=== PATIENT | male | born 1950 | race Caucasian/White ===

== ENCOUNTER → 2019-03-08 | Outpatient (CLI) | payer MEDICARE, OTHER ==
[~2019-03-08] VITALS: Ht 182 cm; Wt 129.5 kg
[~2019-03-08] MED LIST: ASPI-586 PO; CHOL2000 PO; CLOP75TA69 PO; DULO60CA6 PO; FENO134C PO; GABA-488 PO; LOSA25TA41 PO; NAPR220C11 PO; OMEP40CA36 PO
== END | disposition home or self-care (01) ==
LOC: PREOP 08:44
PROVIDERS: ATTEND Surgery
DX: Z01.818 Encounter for other preprocedural examination (principal)

== ENCOUNTER 2019-03-15 08:40 | Inpatient (IN) | payer MEDICARE, OTHER ==
[2019-03-15] VITALS (15 sets, daily range): BP systolic 140–204; BP diastolic 72–99
[~2019-03-15] VITALS: Ht 182 cm; Wt 129.5 kg
[2019-03-15] MEDS ORDERED: NS IV 1000 ML 1,000 ML IV SCH (09:14)
[2019-03-15] MEDS ORDERED: NALOXONE 0.4 MG/ML 1 ML (NARCAN) VIAL IV PRN (09:15)
[2019-03-15] MEDS ORDERED: metroNIDAZOLE 500MG/100ML IVPB 100 ML IV SCH (09:15)
[2019-03-15] MEDS ORDERED: diphenhydrAMINE 50 MG/ML INJ (BENADRYL) IV PRN (09:15)
[2019-03-15] MEDS ORDERED: oxyCODONE 5 MG/5 ML ORAL SOLN (roxiCODONE) 5 ML UDC PO PRN (09:15)
[2019-03-15] MEDS ORDERED: ONDANSETRON 4 MG/2 ML (SDV) Z0FRAN IV PRN (09:15)
[2019-03-15] MEDS ORDERED: METOCLOPRAMIDE INJ 10 MG/2 ML (REGLAN) IV PRN (09:15)
[2019-03-15] MEDS ORDERED: diphenhydrAMINE 50 MG/ML INJ (BENADRYL) IVP PRN (09:15)
[2019-03-15] MEDS ORDERED: morphine PCA 100 MG/100 ML BAG IV PRN (09:15)
[2019-03-15] MEDS ORDERED: RT-ALBUTEROL SULF 2.5 MG/3 ML PRE-MIX VIAL INH SCH (09:15)
[2019-03-15] MEDS ORDERED: HYDR-34 PO (09:21)
[2019-03-15] MEDS ORDERED: PANT40TA2 PO (09:21)
[2019-03-15] MEDS ORDERED: ONDN4T PO (09:21)
--- NOTE | 2019-03-15 09:22 | Discharge Inst-Surgical ---
D/C Lap Instructions-LIO New, Converted, or Re-Newed RX: RX on Chart Follow Up Appt in 2 weeks Activity as tolerated No driving for 24 hours No driving while on pain medications Incentive Spirometry use every 2 hours while awake clear liquid diet next 2 weeks. Symptoms to Report: Fever over 101 degree F, Nausea/Vomiting Infection Signs and Symptoms to report: Increased redness, Foul odor of wound, Increased drainage Bathing instructions: May shower Operative Area Clean/Dry; Keep incision clean/dry If any problems/questions: Contact your physician or go to Emergency Room JOE VACA MD Mar 15, 2019 09:22
--- NOTE | 2019-03-15 09:23 | Progress Note-Pre Operative ---
Pre-Operative Progress Note H&P Reviewed The H&P was reviewed, patient examined and no changes noted. Date Seen by Provider: Mar 15, 2019 Time Seen by Provider: 09:15 Date H&P Reviewed: Mar 15, 2019 Time H&P Reviewed: 09:15 Pre-Operative Diagnosis: morbid obesity, HTN, GERD JOE VACA MD Mar 15, 2019 09:23
[2019-03-15] MEDS ORDERED: ceFAZolin 2 GM/50 ML NS 50 ML ONE (09:29)
[2019-03-15 09:32] LABS: BASOPHILS % (AUTO) 1 % (0-10); EOSINOPHILS # (AUTO) 0.2 10^3/uL (0.0-0.3); EOSINOPHILS % (AUTO) 3 % (0-10); HEMATOCRIT 42 % (40-54); HEMOGLOBIN 14.1 G/DL (13.3-17.7); LYMPHOCYTES # (AUTO) 1.1 X 10^3 (1.0-4.0); LYMPHOCYTES % (AUTO) 22 % (12-44); MEAN CORPUSCULAR HEMOGLOBIN 29 PG (25-34); MEAN CORPUSCULAR HGB CONC 34 G/DL (32-36); MEAN CORPUSCULAR VOLUME 86 FL (80-99); MEAN PLATELET VOLUME 10.7 FL (7.4-10.4); MONOCYTES # (AUTO) 0.6 X 10^3 (0.0-1.0); MONOCYTES % (AUTO) 12 % (0-12); NEUTROPHILS # (AUTO) 2.9 X 10^3 (1.8-7.8); NEUTROPHILS % (AUTO) 62 % (42-75); PLATELET COUNT 279 10^3/uL (130-400); RED CELL DISTRIBUTION WIDTH 14.6 % (10.0-14.5); WHITE BLOOD COUNT 4.8 10^3/uL (4.3-11.0)
[2019-03-15] MEDS ORDERED: ceFAZolin 2 GM/50 ML NS 50 ML IV ONE (09:45)
[2019-03-15] MEDS: LACTATED RINGERS 1,000 ML IV PRN ×3 (10:13→13:44)
[2019-03-15] MEDS ORDERED: fentaNYL INJECTION 100 MCG/2 ML AMP ONE ×2 (11:08→13:02)
[2019-03-15] MEDS ORDERED: MIDAZOLAM 2 MG/2 ML (VERSED) VIAL ONE (11:08)
[2019-03-15] MEDS ORDERED: BUP/EPI 0.25% 1:200,000 (MARCAINE) 10 ML VIAL IJ ONE (11:15)
[2019-03-15] MEDS ORDERED: FAMOTIDINE 20MG/2ML IV (PEPCID) ONE (11:17)
[2019-03-15] MEDS ORDERED: FAMOTIDINE 20MG/2ML IV (PEPCID) IV ONE (11:30)
[2019-03-15] MEDS ORDERED: DEXAMETHASONE 10 MG/ML (DECADRON) 1 ML VIAL ONE (12:12)
[2019-03-15] MEDS ORDERED: SEVOFLURANE (ULTANE) 15 ML INHAL SOLN ONE ×4 (12:12→12:16)
[2019-03-15] MEDS ORDERED: SUCCINYLCHOLINE INJ 100 MG/5 ML SYR ONE (12:12)
[2019-03-15] MEDS ORDERED: ONDANSETRON 4 MG/2 ML (SDV) Z0FRAN ONE (12:12)
[2019-03-15] MEDS ORDERED: ROCURONIUM 10 MG/ML 5 ML SYRINGE IV ONE (12:12)
[2019-03-15] MEDS ORDERED: LACTATED RINGERS 1,000 ML IV ONE (12:16)
[2019-03-15] MEDS ORDERED: GLYCOPYRROLATE 0.2 MG/ML (ROBINUL) 2 ML VIAL ONE (12:16)
[2019-03-15] MEDS ORDERED: NEOSTIGMINE 3 MG/3 ML VIAL ONE (12:16)
--- NOTE | 2019-03-15 12:57 | Progress Note-Post Operative ---
Post-Operative Progess Note Surgeon (s)/Boning Room Worker (s) Surgeon JOE VACA MD Boning Room Worker: mario aponte INFORMATICS EDUCATOR Pre-Operative Diagnosis morbid obesity, HTN, GERD Post-Operative Diagnosis same Procedure & Operative Findings Date of Procedure 03/15/19 Procedure Performed/Findings laparoscopic gastric sleeve resection. Anesthesia Type get Estimated Blood Loss Estimated blood loss (mL): minimal Specimens/Packing Specimens Removed stomach JOE VACA MD Mar 15, 2019 12:57
[2019-03-15] MEDS ORDERED: ONDANSETRON 4 MG/2 ML (SDV) Z0FRAN IVP PRN (13:30)
[2019-03-15] MEDS ORDERED: morphine INJ 10 MG/ML 1ML (SYR OR VIAL) IVP ONE (13:30)
[2019-03-15] MEDS ORDERED: LABETALOL HCL 20 MG/4 ML VIAL ONE (13:53)
--- NOTE | 2019-03-15 13:55 | Anesthesia-General Post-Op ---
General Patient Condition Mental Status/LOC: Same as Preop Cardiovascular: Unsatisfactory Nausea/Vomiting: Absent Respiratory: Satisfactory Pain: Controlled Complications: Absent Post Op Complications Complications None Follow Up Care/Instructions Patient Instructions None needed. Anesthesia/Patient Condition Patient Condition Patient is doing well, no complaints,, no apparent adverse anesthesia problems. HPTN in pacu. Labetalol IV. No complications reported per nursing. SABAS GAN CRNA Mar 15, 2019 13:54
[2019-03-15] MEDS ORDERED: LABETALOL HCL 100 MG/20 ML VIAL IV PRN ×2 (14:00)
--- NOTE | 2019-03-15 14:30 | NUR ---
BRANDY CALIXTO admitted to room 420-1, with an admitting diagnosis of LAP SLEEVE POST-OP , on 03/15/19 from [facility] via [facility], accompanied by STAFF.BRANDY CALIXTO introduced to surroundings, call light, bed controls, phone, TV, temperature control, lights, meal times, smoking policy, visitor policy, side rail policy, bathrooms and showers. Patient Rights given to patient in the handbook.BRANDY CALIXTO verbalizes understanding that [facility] is not responsible for the loss or damage to any personal effects or valuables that are kept in the patients posession during their hospitalization. The following Patient Care Plans were discussed with the PT: Discharge Planning, PAIN CONTROL,IV THERAPY, and TESTS AND PROCEDURES. BRANDY CALIXTO verbalizes understanding of Interdisciplinary Patient Education. Patient and/or family were informed about the Rapid Response Team and its purpose.
--- NOTE | 2019-03-15 14:30 | NUR ---
PT. FROM [facility] . ALERT AT TIMES. KEEPS EYES CLOSED. MOANING FREQ. C/O OF MIDDLE CHEST PAIN. SKIN W/D. DEEP BREATHING ENCOURAGED. O2 ON AT 2 L PER MIN. PER N/C. X 5 DERMABOND SITES TO ABD. WITH SL. BRUISING NOTED. HOB UP. IV PER RIGHT AC IN PLACE. REFUSES ICE CHIPS AT THIS TIME. KRUSE CATH WITH CLEAR YELLOW URINE. ICE TO ABD. SCD'S TO LOWER LEGS CESAR.
[2019-03-15] MEDS ORDERED: morphine PCA 100 MG/100 ML BAG IV ONE (14:55)
[2019-03-15] MEDS: metroNIDAZOLE 500MG/100ML IVPB 100 ML IV SCH (15:18)
[2019-03-15] MEDS: ONDANSETRON 4 MG/2 ML (SDV) Z0FRAN IVP SCH ×2 (15:19→16:04)
[2019-03-15] MEDS: METOCLOPRAMIDE INJ 10 MG/2 ML (REGLAN) IVP SCH ×2 (15:25→16:04)
[2019-03-15] MEDS: 1/2 NS W/KCL 20 MEQ/L 1,000 ML IV SCH ×2 (15:25→16:04)
--- NOTE | 2019-03-15 15:47 | OPERATIVE REPORT ---
DATE OF SERVICE: 03/15/2019 ATTENDING PRIMARY CARE PHYSICIAN: Dr. Wyatt, roll cleaner in [place], [place]. PREOPERATIVE DIAGNOSES: Rheumatoid arthritis, hypertension, gastroesophageal reflux disease and morbid obesity. POSTOPERATIVE DIAGNOSES: Rheumatoid arthritis, hypertension, gastroesophageal reflux disease and morbid obesity. PROCEDURE: Laparoscopic gastric sleeve resection. SURGEON: Joe Vaca MD BIOSTATISTICS DIRECTOR: Vlad Hillman APRN ANESTHESIA: General endotracheal. ESTIMATED BLOOD LOSS: Minimal. FINDINGS: No hiatal hernia identified. Normal appearing gallbladder. DISPOSITION: The patient tolerated the procedure well. INDICATIONS: The patient is a 68-year-old male who is in our surgical weight loss program for the laparoscopic gastric sleeve resection does meets the medical criteria for bariatric surgery. He began to gain the majority of his adult weight 5 years ago after having back surgery. He has tried diet attempts including [place], Weight Watchers, low calorie, and low carbohydrate diets with no success. He has tried exercise regimens; however, he has been limited due to rheumatoid arthritis. His medical comorbidities related to his obesity include rheumatoid arthritis, hypercholesterolemia, hypertension and gastroesophageal reflux disease. DESCRIPTION OF PROCEDURE: The patient was brought to the operating room, laid supine on the table. After adequate IV pain and sedative medications and general endotracheal intubation, the abdomen was prepped and draped in standard surgical fashion. A 0.5% Marcaine with epinephrine was used to anesthetize the overlying skin in the left upper abdominal quadrant. A small transverse skin incision was made using a 15 blade. An 0 silk suture was applied to the medial aspect incision for traction and a Veress needle inserted with a low opening pressure of 0 mmHg. The abdomen was then insufflated to 15 mmHg pressure. The Veress needle removed and a 5 mm XL trocar placed followed by a 5 mm 45-degree angle laparoscope visualizing the peritoneal cavity. A 4-quadrant abdominal exploration was performed. There was mild hepatomegaly. The gallbladder, stomach, omentum appeared normal. There was no hiatal hernia identified. Under direct visualization, we then proceeded to place a midabdominal left midline 10 mm port after the skin and peritoneal lining were anesthetized using 0.5% Marcaine with epinephrine and a transverse skin incision made using a 15 blade. In a similar manner, a midabdominal right of midline 15 mm port was placed followed by a 5 mm right upper abdominal quadrant port. The epigastric region was then anesthetized and a transverse skin incision was made using 11 blade. A tract was then created through the abdominal wall layers using a trocar to a 5 mm port and through this opening, a medium sized Nathansen liver retractor was placed and the left lobe of the liver retracted anteriorly and superiorly. The patient was then placed in steep reverse Trendelenburg position. We then measured 6 cm from the pylorus along the greater curvature and marked this with a marking pen. The gastrocolic ligament next to the stomach was then opened using a Sonicision entering the lesser sac. We first proceeded with inferior dissection until we were probably approximately 2 cm below our marking. We then proceeded cephalad taking the short gastric vessels. We then proceeded to dissect the angle of His connective tissue fibers and dissected the posterior stomach behind this region. Good hemostasis was observed. A 42-Polish bougie was then placed into the stomach and directly into the pylorus under direct visualization. Using this bougie as a guide, we then proceeded with a gastric sleeve resection starting 2 cm below our marking using a 45 mm polyglycolic acid black load. We then proceeded with two 60 mm black loads followed by two 60 mm purple loads completing our gastric sleeve resection leaving 2 cm near the gastroesophageal junction. Good hemostasis was observed. The staple line corners were then clipped with 5 mm clips. Fibrin glue was then placed onto the staple line and the omentum placed onto the staple line and the bougie removed. The liver retractor was then removed. The stomach was removed through the 15 mm port site. The 10 and 15 mm port site fascia and peritoneum were then closed under direct visualization using a Brandon-Kristen device and 0 Vicryl suture. The abdomen was desufflated and remaining ports removed. All skin incisions were closed using 4-0 Monocryl running subcuticular sutures. Wounds were then cleaned and covered with Dermabond. The patient tolerated the procedure well. We will proceed with pain control with a REMOTE OPERATIONS PRODUCER as well as DVT prophylaxis with calf SCDs, early ambulation as well as Lovenox injections. Tomorrow morning, we will start a phase I clear liquid diet. Once he is tolerating at least 60 mL every 30 minutes, has adequate pain control with oral pain medications, ambulating well, we will discharge him home. He will be instructed to follow a phase I clear liquid diet for the next 2 weeks. Job ID: [id number] DocumentID: [id number] Dictated Date: 03/15/2019 13:04:29 Glazing Machine Operator Date: 03/15/2019 15:47:03 Dictated By: JOE VACA MD
[2019-03-15] MEDS ORDERED: fentaNYL INJECTION 5,000 MCG in EMPTY IV BAG (PVC) 1 EA IV SCH (17:00)
[2019-03-15] MEDS ORDERED: fentaNYL PCA 1,000 MCG/NS 80 ML (TOTAL VOLUME 100 ML) INJ SCH ×2 (17:00)
[2019-03-15] MEDS: ENALAPRILAT 2.5 MG/2 ML (VASOTEC) VIAL IV SCH (18:16)
[2019-03-15] MEDS ORDERED: ceFAZolin 2 GM IV Premixed 50 ML IV SCH (19:00)
--- NOTE | 2019-03-15 21:36 | NUR ---
PT B/P 190/93. DR. VACA CALLED. ORDERED LOPRESSOR 5MG Q6.
[2019-03-15] MEDS ORDERED: meTOprolol 5 MG/5 ML (LOPRESSOR) VIAL IV SCH (21:45)
[2019-03-15] MEDS: ENOXAPARIN 40 MG/0.4 ML (LOVENOX) SYR SC SCH (21:51)
[2019-03-15] MEDS: RT-ALBUTEROL SULF 2.5 MG/3 ML PRE-MIX VIAL INH SCH (23:18)
[2019-03-16] MEDS: metroNIDAZOLE 500MG/100ML IVPB 100 ML IV SCH ×2 (00:02→06:28)
[2019-03-16] MEDS: METOCLOPRAMIDE INJ 10 MG/2 ML (REGLAN) IVP SCH ×3 (00:02→11:14)
[2019-03-16] MEDS: ONDANSETRON 4 MG/2 ML (SDV) Z0FRAN IVP SCH ×2 (00:02→06:29)
[2019-03-16 00:07] VITALS: BP 178/90
[2019-03-16] MEDS: ENALAPRILAT 2.5 MG/2 ML (VASOTEC) VIAL IV SCH (00:32)
[2019-03-16] MEDS: 1/2 NS W/KCL 20 MEQ/L 1,000 ML IV SCH ×3 (01:43→13:30)
[2019-03-16] MEDS: ceFAZolin 2 GM IV Premixed 50 ML IV SCH ×2 (01:45→09:02)
[2019-03-16] MEDS: RT-ALBUTEROL SULF 2.5 MG/3 ML PRE-MIX VIAL INH SCH ×3 (02:51→10:59)
[2019-03-16 04:34] VITALS: BP 168/84
[2019-03-16] MEDS: meTOprolol 5 MG/5 ML (LOPRESSOR) VIAL IV SCH ×2 (05:20→11:19)
[2019-03-16 05:46] LABS: HEMOGLOBIN 12.8 G/DL (13.3-17.7); MEAN PLATELET VOLUME 10.7 FL (7.4-10.4); RED CELL DISTRIBUTION WIDTH 14.5 % (10.0-14.5); WHITE BLOOD COUNT 10.5 10^3/uL (4.3-11.0)
[2019-03-16 06:06] LABS: BUN/CREATININE RATIO 15; CALCIUM 8.3 MG/DL (8.5-10.1); CARBON DIOXIDE 21 MMOL/L (21-32); CHLORIDE 105 MMOL/L (98-107); CREATININE SERUM 0.93 MG/DL (0.60-1.30); GFR ESTIMATED > 60; GLUCOSE 123 MG/DL (70-105); POTASSIUM 4.4 MMOL/L (3.6-5.0); SODIUM 136 MMOL/L (135-145)
[2019-03-16 08:00] VITALS: BP 173/78
[2019-03-16] MEDS ORDERED: ENALAPRILAT 2.5 MG/2 ML (VASOTEC) VIAL IV SCH (08:00)
[2019-03-16] MEDS: ENOXAPARIN 40 MG/0.4 ML (LOVENOX) SYR SC SCH (08:29)
[2019-03-16] MEDS ORDERED: PANTOPRAZOLE 40 MG (PROTONIX) VIAL IV SCH (09:00)
[2019-03-16] MEDS ORDERED: SENNA W/DOCUSATE (SENOKOT S) TABLET PO SCH (09:00)
[2019-03-16] MEDS ORDERED: ONDANSETRON 4 MG/2 ML (SDV) Z0FRAN IVP PRN (09:15)
[2019-03-16] MEDS ORDERED: METOCLOPRAMIDE INJ 10 MG/2 ML (REGLAN) IVP PRN (09:15)
--- NOTE | 2019-03-16 09:22 | NUR ---
AFTER TALKING TO AND CLARIFYING ENALAPRIL DOSE AND MEDICATION AVAILABLE TO PULL FROM [facility]. THE CORRECT AMOUNT OF 5 MG WAS GIVEN. MEDICATION DID NOT SCAN. ANCEF -WHEN SCANNED SHOWED THAT IT WAS A DISCONTINUED MED INSTEAD OF THE THE ACTIVE ORDERED DOSE
[2019-03-16] MEDS ORDERED: hydrALAZINE (APESOLINE) 20 MG/ML VIAL IV PRN (09:30)
[2019-03-16 11:22] VITALS: BP 141/65
[2019-03-16] MEDS ORDERED: LOSARTAN 50 MG (COZAAR) TAB PO NR (11:46)
--- NOTE | 2019-03-16 12:39 | Consultation - Hospitalist ---
HPI History of Present Illness: HPI/Chief Complaint Oh Boyle is a 68yoF who presented for sleeve gastrectomy. The hospitalist service has been consulted for hypertension. He underwent the laparoscopic procedure yesterday. He reports having some chest pain overnight which has since resolved. He denies any shortness of breath. He denies fevers and chills. He denies any other pain complaints. He denies abdominal pain, nausea, vomiting, diarrhea, constipation, dysuria. He only takes Losartan at home for blood pressure. Source: patient, family Exam Limitations: no limitations Date Seen 03/16/19 Attending Physician David Rowley MD PCP No,Local Physician Referring Physician Date of Admission Mar 15, 2019 at 08:40 Home Medications & Allergies Home Medications Reviewed patient Home Medication Reconciliation performed by pharmacy medication reconciliations communication electronic technician and/or nursing. Patients Allergies have been reviewed. Allergies Allergies Coded Allergies No Known Drug Allergies (Unverified03/08/19) Past Mjznstl-Pjntmg-Nkuxcb Hx Past Med/Social Hx: Reviewed Nursing Past Med/Soc Hx Patient Social History Alcohol Use: Denies Use Recreational Drug Use: No Smoking Status: Never a Smoker Physical Abuse Screen: No Sexual Abuse: No Recent Foreign Travel: No Contact w/other who traveled: No Recent Hopitalizations: No Recent Infectious Disease Expo: No Immunizations Up To Date Date of Influenza Vaccine: Feb 26, 2019 Seasonal Allergies Seasonal Allergies: No Past Medical History Sexually Transmitted Disease: No HIV/AIDS: No Gastrointestinal: Gastroesophageal Reflux Musculoskeletal: Chronic Back Pain Loss of Vision: Denies Hearing Impairment: Denies Psychosocial: Depression History of Blood Disorders: No Review of Systems Constitutional: no symptoms reported, see HPI EENTM: no symptoms reported Respiratory: no symptoms reported Cardiovascular: no symptoms reported Gastrointestinal: no symptoms reported Genitourinary: no symptoms reported Musculoskeletal: no symptoms reported Skin: no symptoms reported Psychiatric/Neurological: No Symptoms Reported Physical Exam Physical Exam Vital Signs Vital Signs - First Documented 03/15/19 09:05 Temp 36.3 Pulse 105 Resp 18 B/P (MAP) 140/72 Pulse Ox 99 O2 Delivery Room Air Capillary Refill : Height, Weight, BMI Height: '" Weight: lbs. oz. kg; 39.09 BMI Method: General Appearance: No Apparent Distress, WD/WN, Obese HEENT: PERRL/EOMI, Pharynx Normal Neck: Normal Inspection, Supple Respiratory: Lungs Clear, Normal Breath Sounds, No Respiratory Distress Cardiovascular: Regular Rate, Rhythm, No Edema, No Murmur Gastrointestinal: Normal Bowel Sounds, Non Tender, Soft Extremity: Normal Inspection, Non Tender, No Pedal Edema Neurologic/Psychiatric: Alert, Oriented x3 Skin: Normal Color, Warm/Dry Lymphatic: No Adenopathy Results Results/Procedures Labs Laboratory Tests 03/15/19 09:10 03/16/19 05:10 Patient resulted labs reviewed. Assessment/Plan Assessment and Plan Assess & Plan/Chief Complaint Hypertension -BP improved this morning 141/65 -Discontinue IV Enalaprilit and Metoprolol -Begin Losartan 50 mg daily -Add IV Hydralazine 10 mg every 4 hours as needed s/p sleeve gastrectomy Obesity -Pain management and disposition per surgical team Clinical Quality Measures DVT/VTE Risk/Contraindication: Risk Factor Score Per Nursin RFS Level Per Nursing on Admit: 4+=Very High EULA NAVARRO MD Mar 16, 2019 12:39
--- NOTE | 2019-03-16 14:45 | NUR ---
79 MLS FENTANYL HEART COORDINATOR WASTED. WITNESSED BY DARLENE TELLEZ
[2019-03-16 14:58] VITALS: BP 141/65
[2019-03-17] MEDS ORDERED: LOSARTAN 50 MG (COZAAR) TAB PO SCH (09:00)
== END 2019-03-16 14:58 | disposition home or self-care (01) | DRG 621 ==
LOC: 4TH 08:40 → SURG 08:43 → EDSTATUS 10:15 → 4TH 14:05
PROVIDERS: ADMIT Surgery; ATTEND Surgery
PROC: 0DB64Z3 Excision of Stomach, Percutaneous Endoscopic Approach, Vertical (ICD-10-PCS; principal; 2019-03-15 11:39)
DX: E66.01 Morbid (severe) obesity due to excess calories (principal); M06.9 Rheumatoid arthritis, unspecified; I10 Essential (primary) hypertension; K21.9 Gastro-esophageal reflux disease without esophagitis; G89.29 Other chronic pain; M54.9 Dorsalgia, unspecified; F32.9 Major depressive disorder, single episode, unspecified; Z68.39 Body mass index [BMI] 39.0-39.9, adult
CPT/HCPCS: 36415; 80048; 85025; 85027; 87081; 94640; 94664; 94760

== ENCOUNTER 2019-05-22 11:25 | Outpatient (CLI) | payer MEDICARE, OTHER ==
[~2019-05-22] VITALS: Ht 182.9 cm; Wt 99.6 kg
[~2019-05-22 11:25] MED LIST changes: +HYDR-34 PO; +ONDN4T PO; +PANT40TA2 PO
[2019-05-22 11:30] VITALS: BP 144/83
[2019-05-22] MEDS ORDERED: NS IV 1000 ML 1,000 ML ONE (11:39)
[2019-05-22] MEDS: NS IV 1000 ML 1,000 ML IV SCH ×2 (11:48→12:48)
[2019-05-22 13:55] VITALS: BP 157/88
== END 2019-05-22 13:55 | disposition home or self-care (01) ==
LOC: SDC 11:25
PROVIDERS: ATTEND Nurse Practitioner Family
DX: E86.0 Dehydration (principal); Z98.890 Other specified postprocedural states
CPT/HCPCS: 96360; 96361